=== PATIENT | male | born 1940 ===

== ENCOUNTER → 2022-01-23 | Emergency (ER) | payer OTHER ==
[~2022-01-23] VITALS: Ht 165.1 cm; Wt 80.7 kg
[~2022-01-23] MED LIST: CHLORTHALIDONE25 MG PO; ECOTRIN81 MG PO; GLIMEPIRIDE4 MG; HORIZANT600 MG PO; MELOXICAM15 MG PO; NASAL MIST126 ML; OMEGA 3 1,0001 EACH PO; PROSCAR5 MG PO; TOPROL XL25 M1 PO; ZYLOPRIM100 M1 PO
== END | disposition left against medical advice (07) ==
LOC: ER 13:13
DX: R10.9 Unspecified abdominal pain (principal); E11.9 Type 2 diabetes mellitus without complications; Z79.84 Long term (current) use of oral hypoglycemic drugs; E78.00 Pure hypercholesterolemia, unspecified; I10 Essential (primary) hypertension; Z88.6 Allergy status to analgesic agent; K57.30 Diverticulosis of large intestine without perforation or abscess without bleeding; N20.0 Calculus of kidney; Z20.822 Contact with and (suspected) exposure to COVID-19

== ENCOUNTER 2022-09-20 08:45 | Inpatient (IN) | payer OTHER ==
[~2022-09-20] VITALS: Ht 165.1 cm; Wt 82.6 kg
[2022-09-20] MEDS ORDERED: ABSORICA30 MG PO (13:55)
[2022-09-20] MEDS ORDERED: GRALISE600 MG PO (13:55)
[2022-09-20] MEDS ORDERED: GLIMEPIRIDE4 M1 PO (13:56)
[2022-09-20] MEDS ORDERED: TOPROL XL25 M1 PO (13:57)
[2022-09-20] MEDS ORDERED: CHLORTHALIDONE25 MG PO (13:58)
[2022-09-24] MEDS ORDERED: ISOSORBIDE MONO30 M2 (14:06)
[2022-09-24] MEDS ORDERED: TAMSULOSIN HCL0.4 MG (14:06)
[2022-09-24] MEDS ORDERED: DODEX1000 MCG/1 (14:06)
[2022-09-24] MEDS ORDERED: LOSARTAN POTAS100 MG (14:06)
[2022-09-24] MEDS ORDERED: RAMELTEON8 MG (14:06)
[2022-09-28] MEDS ORDERED: HYOPHEN TABLET1 EACH PO (10:04)
[2022-09-28] MEDS ORDERED: HYOSCYAMINE0.125 M1 SL (10:05)
[2022-09-28] MEDS ORDERED: INTEGRA PLUS C1 EACH PO (10:12)
== END 2022-09-28 11:48 | disposition home or self-care (01) | DRG 331 ==
LOC: SURG 09-24 09:00 → SURH 09-24 09:38 → O/R 09-24 09:38 → SURG 09-24 12:00 → SURH 09-24 19:07
PROVIDERS: ADMIT Surgery; ATTEND Surgery
PROC: 07BB4ZZ Excision of Mesenteric Lymphatic, Percutaneous Endoscopic Approach (ICD-10-PCS; 2022-09-24)
PROC: 0WQF4ZZ Repair Abdominal Wall, Percutaneous Endoscopic Approach (ICD-10-PCS; 2022-09-24)
PROC: 0DTF4ZZ Resection of Right Large Intestine, Percutaneous Endoscopic Approach (ICD-10-PCS; principal; 2022-09-24 09:00)
DX: D12.2 Benign neoplasm of ascending colon (principal); K57.30 Diverticulosis of large intestine without perforation or abscess without bleeding; K43.2 Incisional hernia without obstruction or gangrene